=== PATIENT | male | born 1975 | race Caucasian/White ===

== ENCOUNTER 2018-03-06 09:15 | Observation (INO) ==
[2018-03-06] MEDS ORDERED: Tetanus/Diphtheria Toxoid Adult Vaccine Inj 0.5 ML Vial IM ONE (10:11)
[2018-03-06] MEDS ORDERED: Lidocaine PF 1% Inj 30 ML Vial INFILTRATN ONE (10:11)
--- NOTE | 2018-03-06 10:30 | ED ---
HPI General Chief complaint: Skin/Abscess/Foreign Body Stated complaint: Workers Comp Nail in Right Knee Time Seen by Provider: 03/06/18 10:05 Source: patient Mode of arrival: ambulatory Limitations: no limitations History of Present Illness HPI narrative: 42-year-old otherwise healthy male presents to the emergency room for evaluation of foreign body to his right knee that occurred at work just prior to arrival. Patient states he was holding a nail gun and walking with his finger on the sensitive trigger when he slipped and accidentally shot himself with a 2-3 inch nail into his right knee. He then had to climb down a ladder. He reports significant pain worsened with any movement of the knee. Patient came straight from work and has not taken anything for pain. Denies paresthesias. He denies any chronic medical conditions or daily medications. Unknown last tetanus. MD complaint: foreign body Onset (ago): minute(s) Tetanus Immunization: >5 Years Location: RLE Severity: severe Quality: aching and sharp Pain Consistency: constant Relieving factors: none Exacerbating factors: palpation and movement Context: none Associated symptoms: denies other symptoms Treatments prior to arrival: none Related Data Home Medications Medication Instructions Recorded Confirmed No Known Home Medications 03/06/18 03/06/18 Allergies Allergy/AdvReac Type Severity Reaction Status Date / Time No Known Allergies Allergy Verified 03/06/18 09:42 Review of Systems ROS Unobtainable All other systems reviewed negative except as stated in HPI PMFSH Medical History Medical History Patient denies medical problems (Acute) Surgical History Surgical History No history of previous surgery (Acute) Social History Social History Substance History: No History of Abuse Second Hand Smoke Exposure: Yes Smoking Status: Never smoker How Often Do You Have a Drink Containing Alcohol: Never Recent Travel in [facility] within the Last 8 Weeks: No Recent Out of Country Travel within the Last 8 Weeks: No Immunization History Tetanus Immunization: >5 Years Hx Influenza Vaccine This Season: No Exam Narrative Exam Narrative: GENERAL: Well-nourished, well-developed male in no acute distress. Afebrile. Ambulatory with a limp. SKIN: Focused skin assessment warm/dry. Small puncture wound to the right medial, proximal knee. There is a palpable 3 inch metallic nail just below the skin on the distal end. The proximal aspect is difficult to palpate due to depth and swelling. HEAD: Normocephalic. EYES: No scleral icterus. No injection or drainage. NECK: Supple, trachea midline. No JVD or lymphadenopathy. CARDIOVASCULAR: Regular rate and rhythm without murmurs, gallops, or rubs. RESPIRATORY: Breath sounds equal bilaterally. No accessory muscle use. MUSCULOSKELETAL: No cyanosis, or edema. 2+ dorsalis pedis pulse. Somewhat limited range of motion of the right knee because of pain. Extreme tenderness to palpation over the foreign body. Procedures Foreign Body Removal Time Out Performed: yes Foreign Body Removal Site: right and lower extremity Description of Foreign Body: other (nail) Sedation/Analgesia: other (1* idocaine) Technique: incision made to facilitate removal and bedside ultrasound guidance Complications: none, pain and bleeding Post procedure exam:: awake, alert, normal BP, normal HR and normal O2 sat Neurovascular: normal distal pulse, normal capillary fill, distal light touch sensation intact, distal motor function normal, no signs of compartment syndrome and no change from pre-procedure Course Initial Documented Vital Signs Temperature 99 F 03/06/18 09:20 Pulse Rate 72 03/06/18 09:20 Respiratory Rate 16 03/06/18 09:20 Blood Pressure 148/98 H 03/06/18 09:20 Pulse Oximetry 97 03/06/18 09:20 Last Documented Vital Signs Temperature 97.4 F L 03/07/18 03:58 Pulse Rate 52 L 03/07/18 03:58 Respiratory Rate 16 03/07/18 03:58 Blood Pressure 119/69 03/07/18 03:58 Pulse Oximetry 97 03/07/18 03:58 Medical Decision Making [facility] Narrative Medical decision making narrative: 42-year-old male presents to the emergency room for evaluation of foreign body to the right medial knee that occurred just prior to arrival. Patient accidentally shot himself with a high power nail gun. Patient has been ambulatory since the injury. He was able to climb down a ladder. He is well-appearing in the emergency room. Vital signs stable. There is a palpable 2 inch else in the anterior, medial knee. The puncture wound is about 2 cm superior to the nail. X-ray shows no bone or joint involvement. Under ultrasound guidance, an incision was made. The nail was palpated with the tip of the scalpel but it is too embedded and deep to remove in the ER. I spoke to Dr. Leung, orthopedic surgeon, who recommends CT. CT shows no joint involvement. Dr. Allison recommends transfer to [facility] for foreign body removal in the OR either tonight or tomorrow. Patient should remain nothing by mouth. IV access established basic labs obtained. CBC and BMP are unremarkable. Preop EKG obtained. Patient given Toradol, morphine, Ancef, and updated on tetanus in the emergency room. I spoke to Dr. Fontanez agrees to accept this patient to her service. He understands and agrees to plan. Differential Diagnosis Differential Diagnosis: Foreign body, joint effusion, bone injury, fracture Lab Data Result diagrams: 03/06/18 15:14 03/06/18 15:14 Lab Results 03/06/18 03/06/18 Range/Units 15:14 15:14 CBC w Diff Auto diff final WBC 5.5 (4.0-11.0) th/mm3 RBC 4.58 (4.50-5.90) mil/mm3 Hgb 14.1 (13.0-17.0) gm/dL Hct 40.9 (39.0-51.0) % MCV 89.3 (80.0-100.0) fL MCH 30.7 (27.0-34.0) pg MCHC 34.4 (32.0-36.0) % RDW 12.2 (11.6-17.2) % Plt Count 163 (150-450) th/mm3 MPV 8.7 (7.0-11.0) fL Neut % (Auto) 63.0 (16.0-70.0) % Lymph % (Auto) 25.9 (9.0-44.0) % [place] % (Auto) 6.5 (0.0-8.0) % Eos % (Auto) 3.9 (0.0-4.0) % Baso % (Auto) 0.7 (0.0-2.0) % Neut # (Auto) 3.5 (1.8-7.7) th/mm3 Lymph # (Auto) 1.4 (1.0-4.8) th/mm3 [place] # (Auto) 0.4 (0.0-0.9) th/mm3 Eos # (Auto) 0.2 (0.0-0.4) th/mm3 Baso # (Auto) 0.0 (0.0-0.2) th/mm3 WBC Differential . Sodium 142 (136-145) meq/L Potassium 4.5 (3.5-5.1) meq/L Chloride 111 H (98-107) meq/L Carbon Dioxide 25.9 (21.0-32.0) meq/L Anion Gap 5 (5-15) meq/L BUN 16 (7-18) mg/dL Creatinine 1.00 (0.60-1.30) mg/dL Estimated GFR 82 L (>89) mL/min Random Glucose 85 (74-106) mg/dL Calcium 8.3 L (8.5-10.1) mg/dL Imaging Data Radiologist's impression: ITS Impressions Knee X-Ray 03/06/18 10:11 CONCLUSION: 1. There is a nail in the soft tissues along the anteromedial aspect of the right knee area. 2. The bony structures are grossly intact. No joint dislocation. Knee CT 03/06/18 12:28 CONCLUSION: 1. There is a nail in the anterior medial soft tissues of the region of the knee. 2. The bony structures are grossly intact. Discharge Plan Discharge Disposition Patient Disposition: Transfer To [facility] [place] Discharge Details Anticipated Discharge Date: 03/07/18 Physicians Team ED Provider: Hugo Fuentes ED Midlevel Provider: Cierra Cuellar Primary Care Provider: Primary Care Marichuy Nielsen Attending Provider: Alejnadra Dean Status ED Status: Left Department Discharge Information Discharge Date/Time: 03/06/18 17:00
--- NOTE | 2018-03-06 10:32 | XR ---
EXAM DATE: 03/06/2018 10:29 AM EDT AGE/SEX: 42 years / Male INDICATIONS: Right knee foreign body; nail in knee from nail gun. CLINICAL DATA: This is the patient's initial encounter. Patient reports that signs and symptoms have been present for 1 day and indicates a pain score of 8/10. MEDICAL/SURGICAL HISTORY: None. None. COMPARISON: No prior exams available for comparison. FINDINGS: The bony structures are grossly intact. There is no joint dislocation. There is a nail in the soft ti ssues along the anteromedial aspect of the right knee area. The nail does not appear to be in a bony structure. There is no evidence of a joint effusion. CONCLUSION: 1. There is a nail in the soft tissues along the anteromedial aspect of the right knee area. 2. The bony structures are grossly intact. No joint dislocation. Electronically signed by: Marvin Ramirez MD 03/06/2018 10:31 AM EDT
[2018-03-06] MEDS ORDERED: Morphine Inj 4 MG/ML Vial IV.PUSH ONE (14:48)
[2018-03-06] MEDS ORDERED: ceFAZolin 2 GM Premix Inj 2 GM/50 ML PIGGYBACK IV.SIG ONE (14:48)
[2018-03-06 15:48] LABS: Potassium 4.5 meq/L (3.5-5.1)
[2018-03-06 15:50] LABS: Calcium 8.3 mg/dL (8.5-10.1)
[2018-03-06] MEDS ORDERED: Acetaminophen 325 MG Tablet PO PRN (15:50)
[2018-03-06] MEDS ORDERED: Bisacodyl 10 MG Supp RECTAL PRN (15:50)
[2018-03-06] MEDS ORDERED: Temazepam 15 MG Capsule PO PRN (15:50)
[2018-03-06 15:51] LABS: Carbon Dioxide 25.9 meq/L (21.0-32.0)
[2018-03-06 15:55] LABS: Baso % (Auto) 0.7 % (0.0-2.0); Eos # (Auto) 0.2 th/mm3 (0.0-0.4); Eos % (Auto) 3.9 % (0.0-4.0); Hematocrit 40.9 % (39.0-51.0); Hemoglobin 14.1 gm/dL (13.0-17.0); Lymph # (Auto) 1.4 th/mm3 (1.0-4.8); Lymph % (Auto) 25.9 % (9.0-44.0); Mean Corpuscular HGB Conc 34.4 % (32.0-36.0); Mean Corpuscular Hemoglobin 30.7 pg (27.0-34.0); Mean Corpuscular Volume 89.3 fL (80.0-100.0); Mean Platelet Volume 8.7 fL (7.0-11.0); Mono # (Auto) 0.4 th/mm3 (0.0-0.9); Mono % (Auto) 6.5 % (0.0-8.0); Neut # (Auto) 3.5 th/mm3 (1.8-7.7); Platelet Count 163 th/mm3 (150-450); Red Blood Count 4.58 mil/mm3 (4.50-5.90); Red Cell Distribution Width 12.2 % (11.6-17.2); White Blood Count 5.5 th/mm3 (4.0-11.0)
--- NOTE | 2018-03-06 16:37 | P.CONIM ---
History of Present Illness Primary Care Provider: No Primary Care Physician Chief Complaint: Right knee pain History of Present Illness: This patient is a 42-year-old gentleman with no past medical history who is come to the hospital complaining of right knee pain after an poly-himself with a nail gun while at work. Knee is quite painful and patient reports he has never done this before. Pain is severe and relieved with morphine. He came to the emergency room and the puncture was evaluated by the ER team and the nail was unable to be retrieved despite ER team measures. Patient's been recommended for orthopedic evaluation for surgical removal of foreign body. Patient does agree to this plan has been recommended for observation in the hospital. Review of Systems All other systems reviewed negative except as stated in HPI Constitutional: Reports fever(s) PMFSH - History History Provided By: Patient - Medical History Medical History: Medical History (Last Reviewed 03/06/18 @ 16:35 by Jodi Fontanez MD) Patient denies medical problems - Surgical History Surgical History: Surgical History (Last Reviewed 03/06/18 @ 16:35 by Jodi Fontanez MD) No history of previous surgery - Tobacco History Second Hand Smoke Exposure: No Smoking Status: Never smoker - Alcohol History How Often Do You Have a Drink Containing Alcohol: Never - Travel History Recent Travel in the [place] Within the Last 8 Weeks: No Recent Travel Out of the Country Within the Last 8 Weeks: No - Immunization History Tetanus Immunization: >5 Years Hx Influenza Vaccine This Season: No Medications and Allergies Active Medications: Active Medications Acetaminophen (Tylenol) 650 mg PO Q4H PRN PRN Reason: Temp > 100.4 Al Hydroxide/Mg Hydroxide (Milk Of Magnesia Liq) 30 ml PO Q12H PRN PRN Reason: Mild Constipation Bisacodyl (Dulcolax Supp) 10 mg RECTAL DAILY PRN PRN Reason: SEVERE CONSITIPATION Lactulose (Lactulose Liq) 30 ml PO DAILY PRN PRN Reason: SEVERE CONSITIPATION Metoclopramide HCl (Reglan Inj) 5 mg IV.PUSH Q6HR PRN; Protocol PRN Reason: NAUSEA OR VOMITING Senna/Docusate Sodium (Chica-Colace) 1 tab PO BID [place] Sennosides (Senokot) 17.2 mg PO Q12H PRN PRN Reason: Moderate Constipation Temazepam (Restoril) 15 mg PO HS PRN PRN Reason: INSOMNIA Allergies Allergy/AdvReac Type Severity Reaction Status Date / Time No Known Allergies Allergy Verified 03/06/18 09:42 Home Medications Medication Instructions Recorded Confirmed Type No Known Home Medications 03/06/18 03/06/18 History Exam Vital signs: Vital Signs 03/06/18 09:20 03/06/18 11:12 03/06/18 11:20 Temperature 99 F Pulse Rate 72 63 Respiratory Rate 16 16 16 Blood Pressure 148/98 H 155/100 H Pulse Oximetry 97 95 03/06/18 15:19 03/06/18 16:16 Temperature Pulse Rate 51 L 51 L Respiratory Rate 16 16 Blood Pressure 135/92 H 109/70 Pulse Oximetry 100 98 Intake & Output 03/05/18 03/06/18 03/06/18 18:59 06:59 18:59 Intake Total 50 / 50 Balance 50 / 50 Weight 116 kg Intake: IV 50 / 50 Ancef 2 GM Premix Inj 2 gm In 50 / 50 50 ml @ 100 mls/hr IV.SIG ONCE ONE Rx#:[id number] - Constitutional no acute distress, average body habitus - Routine HEENT Exam Head: Present: normocephalic, atraumatic Eye: Present: EOMI, PERRL ENT: Present: mucous membranes moist - Routine Neck Exam Present: supple, full ROM - Routine Respiratory Exam Present: CTA bilaterally - Routine Cardiovascular Exam Present: RRR - Routine Abdominal Exam Present: soft - Routine Extremities Exam Present: cyanosis, clubbing - Routine Skin Exam Comments: right knee dressing in tact - Routine Neurological Exam Present: alert, oriented X3 Results - Labs CBC & Chem 7: 03/06/18 15:14 03/06/18 15:14 Labs: Laboratory Results - last 24 hr 03/06/18 03/06/18 15:14 15:14 CBC w Diff Auto diff final WBC 5.5 RBC 4.58 Hgb 14.1 Hct 40.9 MCV 89.3 MCH 30.7 MCHC 34.4 RDW 12.2 Plt Count 163 MPV 8.7 Neut % (Auto) 63.0 Lymph % (Auto) 25.9 [place] % (Auto) 6.5 Eos % (Auto) 3.9 Baso % (Auto) 0.7 Neut # (Auto) 3.5 Lymph # (Auto) 1.4 [place] # (Auto) 0.4 Eos # (Auto) 0.2 Baso # (Auto) 0.0 WBC Differential . Sodium 142 Potassium 4.5 Chloride 111 H Carbon Dioxide 25.9 Anion Gap 5 BUN 16 Creatinine 1.00 Estimated GFR 82 L Random Glucose 85 Calcium 8.3 L - Imaging Impressions Knee X-Ray 03/06/18 10:11 CONCLUSION: 1. There is a nail in the soft tissues along the anteromedial aspect of the right knee area. 2. The bony structures are grossly intact. No joint dislocation. Knee CT 03/06/18 12:28 CONCLUSION: 1. There is a nail in the anterior medial soft tissues of the region of the knee. 2. The bony structures are grossly intact. Assessment and Plan - Assessment (1) Foreign body of knee Code(s): S80.259A - Superficial foreign body, unspecified knee, initial encounter Status: Acute
[2018-03-06] MEDS ORDERED: Morphine Sulfate Inj 2 MG/ML Vial IV.PUSH PRN ×2 (19:23→19:26)
[2018-03-06] MEDS ORDERED: Morphine Inj 4 MG/ML Vial IV.PUSH PRN (20:45)
[2018-03-06] MEDS: Morphine Inj 4 MG/ML Vial IV.PUSH PRN (21:13)
[2018-03-06] MEDS: Senna/Docusate Sodium 8.6/50 MG Tablet PO SCH (21:22)
[2018-03-07] MEDS: Morphine Inj 4 MG/ML Vial IV.PUSH PRN ×3 (00:48→09:55)
--- NOTE | 2018-03-07 07:16 | ED ---
HPI General Chief complaint: Skin/Abscess/Foreign Body Stated complaint: Workers Comp Nail in Right Knee Time Seen by Provider: 03/06/18 10:05 Source: patient Mode of arrival: ambulatory Limitations: no limitations History of Present Illness complaint: foreign body Location: RLE Severity: severe Relieving factors: none Exacerbating factors: palpation and movement Associated symptoms: denies other symptoms Related Data Home Medications Medication Instructions Recorded Confirmed No Known Home Medications 03/06/18 03/06/18 Allergies Allergy/AdvReac Type Severity Reaction Status Date / Time No Known Allergies Allergy Verified 03/06/18 09:42 [facility] Medical History Medical History Patient denies medical problems (Acute) Surgical History Surgical History No history of previous surgery (Acute) Social History Social History Substance History: No History of Abuse Second Hand Smoke Exposure: Yes Smoking Status: Never smoker How Often Do You Have a Drink Containing Alcohol: Never Recent Travel in [facility] within the Last 8 Weeks: No Recent Out of Country Travel within the Last 8 Weeks: No Immunization History Tetanus Immunization: >5 Years Hx Influenza Vaccine This Season: No Course Initial Documented Vital Signs Temperature 99 F 03/06/18 09:20 Pulse Rate 72 03/06/18 09:20 Respiratory Rate 16 03/06/18 09:20 Blood Pressure 148/98 H 03/06/18 09:20 Pulse Oximetry 97 03/06/18 09:20 Last Documented Vital Signs Temperature 97.4 F L 03/07/18 03:58 Pulse Rate 52 L 03/07/18 03:58 Respiratory Rate 16 03/07/18 03:58 Blood Pressure 119/69 03/07/18 03:58 Pulse Oximetry 97 03/07/18 03:58 Medical Decision Making BETY Attestation BETY supervised visit: Yes Attestation: I, Dr. Fuentes, have reviewed the advance practice practitioner's documentation and am in agreement, met with the patient face to face, made the diagnosis, and the medical decision making was done by me. *My assessment and Findings: This patient has a 3 inch nail stuck near the knee was a high pressure nail gun injury. JODEE Norton attempted removal but it is too deep for bedside ER removal, even using ultrasound guidance. Labs and imaging reviewed. She discussed the case with orthopedist who will admit for surgical removal Lab Data Result diagrams: 03/06/18 15:14 03/06/18 15:14 Lab Results 03/06/18 03/06/18 Range/Units 15:14 15:14 CBC w Diff Auto diff final WBC 5.5 (4.0-11.0) th/mm3 RBC 4.58 (4.50-5.90) mil/mm3 Hgb 14.1 (13.0-17.0) gm/dL Hct 40.9 (39.0-51.0) % MCV 89.3 (80.0-100.0) fL MCH 30.7 (27.0-34.0) pg MCHC 34.4 (32.0-36.0) % RDW 12.2 (11.6-17.2) % Plt Count 163 (150-450) th/mm3 MPV 8.7 (7.0-11.0) fL Neut % (Auto) 63.0 (16.0-70.0) % Lymph % (Auto) 25.9 (9.0-44.0) % [place] % (Auto) 6.5 (0.0-8.0) % Eos % (Auto) 3.9 (0.0-4.0) % Baso % (Auto) 0.7 (0.0-2.0) % Neut # (Auto) 3.5 (1.8-7.7) th/mm3 Lymph # (Auto) 1.4 (1.0-4.8) th/mm3 [place] # (Auto) 0.4 (0.0-0.9) th/mm3 Eos # (Auto) 0.2 (0.0-0.4) th/mm3 Baso # (Auto) 0.0 (0.0-0.2) th/mm3 WBC Differential . Sodium 142 (136-145) meq/L Potassium 4.5 (3.5-5.1) meq/L Chloride 111 H (98-107) meq/L Carbon Dioxide 25.9 (21.0-32.0) meq/L Anion Gap 5 (5-15) meq/L BUN 16 (7-18) mg/dL Creatinine 1.00 (0.60-1.30) mg/dL Estimated GFR 82 L (>89) mL/min Random Glucose 85 (74-106) mg/dL Calcium 8.3 L (8.5-10.1) mg/dL Imaging Data Radiologist's impression: ITS Impressions Knee X-Ray 03/06/18 10:11 CONCLUSION: 1. There is a nail in the soft tissues along the anteromedial aspect of the right knee area. 2. The bony structures are grossly intact. No joint dislocation. Knee CT 03/06/18 12:28 CONCLUSION: 1. There is a nail in the anterior medial soft tissues of the region of the knee. 2. The bony structures are grossly intact. Discharge Plan Discharge Disposition Patient Disposition: Transfer To [facility] [place] Discharge Details Anticipated Discharge Date: 03/07/18 Physicians Team ED Provider: Hugo Fuentes ED Midlevel Provider: Cierra Cuellar Primary Care Provider: Primary Care Marichuy Nielsen Attending Provider: Arthur Conner Status ED Status: Left Department Discharge Information Discharge Date/Time: 03/06/18 17:00
[2018-03-07] MEDS: Senna/Docusate Sodium 8.6/50 MG Tablet PO SCH (08:37)
--- NOTE | 2018-03-07 10:03 | P.PN ---
Subjective Interval history: Follow up foreign body in right knee. Patient seen and examined, lying in bed comfortably in nad. at bedside. Plan for OR today for removal. Keep NPO. VSS. Afebrile. No events overnight. Physical Exam Vital signs: Vital Signs 03/06/18 11:12 03/06/18 11:20 03/06/18 15:19 Temperature Pulse Rate 63 51 L Respiratory Rate 16 16 16 Blood Pressure 155/100 H 135/92 H Pulse Oximetry 95 100 03/06/18 16:16 03/06/18 20:00 03/06/18 22:47 Temperature Pulse Rate 51 L Respiratory Rate 16 16 Blood Pressure 109/70 155/98 H Pulse Oximetry 98 100 03/07/18 00:00 03/07/18 00:52 03/07/18 03:58 Temperature 97.4 F L 97.4 F L Pulse Rate 50 L 52 L Respiratory Rate 16 18 16 Blood Pressure 110/58 L 119/69 Pulse Oximetry 97 Intake & Output 03/06/18 03/07/18 03/07/18 18:59 06:59 18:59 Intake Total 50 / 50 0 / 0 Output Total 850 / 850 Balance 50 / 50 -850 / -850 Weight 116 kg 117.5 kg Intake: IV 50 / 50 Ancef 2 GM Premix Inj 2 gm In 50 / 50 50 ml @ 100 mls/hr IV.SIG ONCE ONE Rx#:[id number] Oral 0 / 0 Output: Urine 850 / 850 Other: Date of Last Bowel Movement 03/06/18 Weight On Admission 117.5 kg - Constitutional no acute distress - Routine HEENT Exam Head: Present: normocephalic Eye: Present: EOMI, PERRL ENT: Present: mucous membranes moist - Routine Neck Exam Present: supple Results - Labs CBC & Chem 7: 03/06/18 15:14 03/06/18 15:14 Laboratory Results - last 24 hr 03/06/18 03/06/18 15:14 15:14 CBC w Diff Auto diff final WBC 5.5 RBC 4.58 Hgb 14.1 Hct 40.9 MCV 89.3 MCH 30.7 MCHC 34.4 RDW 12.2 Plt Count 163 MPV 8.7 Neut % (Auto) 63.0 Lymph % (Auto) 25.9 [place] % (Auto) 6.5 Eos % (Auto) 3.9 Baso % (Auto) 0.7 Neut # (Auto) 3.5 Lymph # (Auto) 1.4 [place] # (Auto) 0.4 Eos # (Auto) 0.2 Baso # (Auto) 0.0 WBC Differential . Sodium 142 Potassium 4.5 Chloride 111 H Carbon Dioxide 25.9 Anion Gap 5 BUN 16 Creatinine 1.00 Estimated GFR 82 L Random Glucose 85 Calcium 8.3 L - Imaging Impressions Knee X-Ray 03/06/18 10:11 CONCLUSION: 1. There is a nail in the soft tissues along the anteromedial aspect of the right knee area. 2. The bony structures are grossly intact. No joint dislocation. Knee CT 03/06/18 12:28 CONCLUSION: 1. There is a nail in the anterior medial soft tissues of the region of the knee. 2. The bony structures are grossly intact. Assessment and Plan - Assessment (1) Foreign body of knee Code(s): S80.259A - Superficial foreign body, unspecified knee, initial encounter Status: Acute - Plan This patient is a 42-year-old gentleman with no past medical history who is come to the hospital complaining of right knee pain after a nail gun incident while at work. Right knee foreign body - Nail in right knee from nail gun incident,. - Consult placed to orthopedic sx. Plan for OR today. - Keep NPO. - Pain control, Morphine IV available per pain scale. - Further hospitalization and treatment plan will depend on further orthopedic recommendations. DVT prophylaxis: SCDs. Discharge Planning: DC home today after surgery and per their recs. Will have follow up with ortho upon dc.
[2018-03-07] MEDS ORDERED: Chlorhexidine Gluconate 2% 1 Pack (2 Cloths) TOPICAL SCH (10:45)
[2018-03-07] MEDS ORDERED: Metoprolol Tartrate 25 MG Tablet PO SCH (10:45)
--- NOTE | 2018-03-07 10:51 | ECG ---
Date Performed: 03/06/2018 Time Performed: 15:02:42 PTAGE: 42 years EKG: SINUS BRADYCARDIA BORDERLINE ECG NO PREVIOUS TRACING DOCTOR: Kingsley Jerome Interpretating Date/Time 03/07/2018 10:47:48
[2018-03-07] MEDS ORDERED: Sodium Chlor 0.9% Inj 500 ML IV.SIG SCH (11:00)
[2018-03-07] MEDS ORDERED: fentaNYL Citrate Inj 100 MCG/2 ML Ampul ONE ×2 (11:52→11:53)
[2018-03-07] MEDS ORDERED: Bupivacaine/Epinephrine Inj 0.25% 50 ML Vial ONE (12:02)
[2018-03-07] MEDS ORDERED: Bupivacaine/Dextrose 0.75% Inj 2 ML Ampul ONE (12:02)
[2018-03-07] MEDS ORDERED: ceFAZolin 2 GM Premix Inj 2 GM/50 ML PIGGYBACK IV.SIG ONE (12:25)
[2018-03-07] MEDS ORDERED: Naloxone Inj 0.4 MG/ML Vial ONE (13:30)
[2018-03-07] MEDS ORDERED: *morphine SULFATE 4 MG/ML PERIprocedure ONLY ONE (13:51)
--- NOTE | 2018-03-07 13:59 | MB ---
cc: Chaz Isbell MD DATE: 03/07/2018 REASON FOR CONSULTATION: Foreign body in right knee. HISTORY OF PRESENT ILLNESS: Abdi is a 42-year-old male who presented to the hospital. He was using a nail gun at work. He actually hit the trigger on the nail gun. The nail gun shot a nail into his knee. He had immediate right knee pain. He presented to the Emergency Room where x-rays revealed a large foreign body consistent with a nail in the right knee. He is currently awake and alert in the emergency room. His only complaint is his right knee. He denies any dizziness, syncope or loss of consciousness. His only complaint is his right knee. Pain is worse with movement. He has had difficulty ambulating. PAST MEDICAL HISTORY: Illnesses: None. SURGERIES: None. ALLERGIES: NONE. MEDICATIONS: None. SOCIAL HISTORY: The patient denies alcohol, tobacco or drug use. FAMILY HISTORY: Noncontributory. REVIEW OF SYSTEMS: The patient denies fevers, weight loss, headache, visual changes, hearing loss, chest pain, palpitations, shortness of breath, nausea or vomiting, urinary changes, bowel changes, neck or back pain, skin rashes, weakness or numbness of extremities or depression. He complains of right knee pain. The pain is worse with movement. LABORATORY DATA: White blood cell count is 5.5. Hematocrit is 40.9, platelet count is 163, potassium is 4.5, BUN 16. X-rays of right knee are reviewed. X-rays reveal a large metallic object in the soft tissue of the right knee. This appears to be consistent with a nail. PHYSICAL EXAMINATION: GENERAL: The patient is a well-developed, well-nourished, 42-year-old male. He is awake and alert. He is alert and oriented x3. He is in no acute distress. VITAL SIGNS: Temperature 97.6, pulse 52, respirations 16, blood pressure 113/64, O2 saturations 100% on room air. HEENT: Head: The patient is normocephalic. Eyes: Pupils are equal. NECK: Soft, nontender. The trachea is in the midline. ABDOMEN: Soft, nontender, nondistended. EXTREMITIES: Examination of bilateral upper extremities reveals no pain with shoulder, elbow and wrist motion. He has intact sensation in all fingers. He has good capillary refill in all fingers. Skin is intact. Radial pulses are palpable. Examination of left leg reveals no pain with hip, knee or ankle motion. Skin is intact. Dorsalis pedis pulses palpable. Sensation is intact. Examination of right leg reveals no pain around his hip or ankle. He has intact sensation right foot. Dorsalis pedis pulses palpable. Examination of his right knee reveals pain with any motion. He has 2 lacerations over the anterior knee. There is a palpable foreign body underneath the skin. The foreign body is not visible. The calf, thigh compartments are soft. IMPRESSION: 1. Nail gun injury to right knee. 2. Foreign body, right knee. PLAN: Treatment options were discussed with the patient. At this point, would recommend surgery for irrigation and debridement of right knee with removal of foreign body. Risks of surgery include bleeding, infection, injury to arteries, nerves or blood vessels, nonunion, malunion, painful hardware, wound infection, as well as medical complications including blood clot, stroke, heart attack and . All questions were answered. I will plan on surgery today. A mid-level provider in my office, nurse practitioner or PA, may see this patient on a follow-up basis and continue to implement the objective of this plan including: Starting or adjusting medications, injections of muscle, tendon, bursa or joints, cast application, orthotic or brace application, physical therapy, further radiographic studies including x-ray, MRI, CT, ultrasounds or bone scan, vascular studies, neurologic studies, or other specialist consultations, and proceeding with surgical management as appropriate. Postoperatively, the patient will be prescribed a narcotic pain medication. The [employer] prescription drug monitoring database has been queried. The patient has acute pain exacerbation. He has an expected physiologic response secondary to traumatic injury and surgery. There is lack of other alternative treatment options except for narcotic pain medication. MD NED Moise/KARMA , 01:33 PM , 01:57 PM JACE
--- NOTE | 2018-03-07 14:02 | XR ---
EXAM DATE: 03/07/2018 1:59 PM EDT AGE/SEX: 42 years / Male INDICATIONS: Post removal of foreign body. CLINICAL DATA: This is the patient's subsequent encounter. Patient reports that signs and symptoms h ave been present for 1 day and indicates a pain score of Nonresponsive. MEDICAL/SURGICAL HISTORY: None. None. COMPARISON: [facility], KNEE LIMITED RIGHT 09/06V, 03/07/2018. . CONCLUSION: Fluoroscopic images obtained of the right knee after removal of foreign body. Electronically signed by: Han Casper MD 03/07/2018 2:00 PM EDT
--- NOTE | 2018-03-07 14:02 | XR ---
EXAM DATE: 03/07/2018 1:58 PM EDT AGE/SEX: 42 years / Male INDICATIONS: Right knee foreign body. CLINICAL DATA: This is the patient's initial encounter. Patient reports that signs and symptoms have been present for 1 day and indicates a pain score of Nonresponsive. MEDICAL/SURGICAL HISTORY: None. None. COMPARISON: [facility] [place], KNEE LIMITED RIGHT 2V, 03/07/2018. . CONCLUSION: Fluoroscopic images right knee demonstrates temporary probe just superior to a nail/foreign body/ Electronically signed by: Han Casper MD 03/07/2018 2:01 PM EDT
[2018-03-07] MEDS ORDERED: Gentamicin/NS 80 mg Premix 100 ML IV.SIG SCH (15:00)
[2018-03-07] MEDS ORDERED: Gentamicin Inj 80 MG in Sodium Chlor 0.9% Inj 100 ML IV.SIG SCH ×2 (15:30→16:00)
--- NOTE | 2018-03-07 16:15 | P.PNOP ---
Subjective Interval history: Doing well after surgery. Transferred to PACU in stable condition Physical Exam Vital signs: Vital Signs 03/06/18 16:16 03/06/18 20:00 03/06/18 22:47 Temperature Pulse Rate 51 L Respiratory Rate 16 16 Blood Pressure 109/70 155/98 H Pulse Oximetry 98 100 03/07/18 00:00 03/07/18 00:52 03/07/18 03:58 Temperature 97.4 F L 97.4 F L Pulse Rate 50 L 52 L Respiratory Rate 16 18 16 Blood Pressure 110/58 L 119/69 Pulse Oximetry 97 03/07/18 08:00 03/07/18 13:24 03/07/18 13:30 Temperature 97.6 F 97.8 F Pulse Rate 68 56 L Respiratory Rate 54 H 17 17 Blood Pressure 113/66 137/88 133/77 Pulse Oximetry 100 100 100 03/07/18 13:50 03/07/18 14:04 Temperature 97.8 F Pulse Rate 55 L 56 L Respiratory Rate 18 17 Blood Pressure 127/82 143/95 H Pulse Oximetry 100 100 Intake & Output 03/06/18 03/07/18 03/07/18 18:59 06:59 18:59 Intake Total 50 / 50 0 / 0 750 / 750 Output Total 850 / 850 25 / 25 Balance 50 / 50 -850 / -850 725 / 725 Weight 116 kg 117.5 kg Intake: IV 50 / 50 50 / 50 Ancef 2 GM Premix Inj 2 gm In 50 / 50 50 / 50 50 ml @ 0 mls/hr IV.SIG .STK- MED ONE Rx#:[id number] Oral 0 / 0 Anesthesia Amount 700 / 700 Output: Urine 850 / 850 Estimated Blood Loss 25 / 25 Other: Date of Last Bowel Movement 03/06/18 Weight On Admission 117.5 kg - Routine Extremities Exam Comments: Right lower extremity: Clean dry dressings intact. Moderate swelling. Knee is stable to exam. Distally intact sensation with good capillary refills. Results - Labs CBC & Chem 7: 03/06/18 15:14 03/06/18 15:14 - Imaging Impressions Knee X-Ray 03/07/18 00:00 CONCLUSION: Fluoroscopic images obtained of the right knee after removal of foreign body. Knee X-Ray 03/07/18 00:00 CONCLUSION: Fluoroscopic images right knee demonstrates temporary probe just superior to a nail/foreign body/ Assessment and Plan - Ortho Post Op Day # 0 - Assessment and Plan Irrigation debridement of right knee with removal of nail. Nail does not appear to have pierced bone or knee joint. Weightbearing as tolerated and may be discharged home when able. Follow up with Dr. Isbell or JODEE in 2 weeks for planned suture removal
[2018-03-07] MEDS ORDERED: Lidocaine PF 1% Inj 5 ML Syringe INFILTRATN ONE (16:59)
[2018-03-07] MEDS ORDERED: Esmolol Bolus Inj 100 MG/10 ML Vial IV.PUSH ONE (16:59)
[2018-03-07] MEDS ORDERED: ceFAZolin 2 GM Premix Inj 2 GM/50 ML PIGGYBACK IV.SIG SCH (20:00)
--- NOTE | 2018-03-17 10:35 | P.OP ---
Date of procedure: 03/17/18 Procedure: removal of deep foreign body right knee Anesthesia: GETA Surgeon: Chaz Wilks MD Cable Hooker: CHECO Oh PA-C The surgical procedure was assisted by my physician cable splicer assistant. My P.A. presence was necessary throughout this case for the manipulation and positioning of the surgical extremity. My P.A. was assisting me throughout the duration of this procedure. The skill set of a physician cable splicer assistant was medically necessary to complete this procedure. During the surgical case the certified surgical technologist was working at the back table and the physician cable splicer assistant was directly assisting me. Operation and Findings: Abdi sustained an injury at work resulting in a nail from a nail then going into his right knee. Informed consent was obtained preoperatively and operative site was marked. His back operating room. He was given IV sedation and general anesthesia. Timeout procedure was performed. Right leg was prepped with alcohol follow-up Hibiclens and draped in usual sterile fashion. Procedure began with localization of the nail. Fluoroscopy was used to help visualize the nail. The nail was in soft tissue and was not in bone. The nail was removed. The traumatic laceration was opened. The soft tissue was thoroughly irrigated. An excisional debridement was performed of this local soft tissue. The joint capsule itself was palpated and visualized and appeared to be intact. After thorough debridement the wound was thoroughly irrigated with sterile saline. Next the wound was closed with 3-0 PDS and 3-0 nylon. Sterile dressings were applied. Patient was awakened and transferred to recovery Room in stable condition.
== END 2018-03-07 17:00 | disposition home or self-care (01) ==
LOC: PHEDA 09:15 → N04 09:15 → PHED 09:15 → N04 17:00
PROVIDERS: ADMIT Family Medicine; ATTEND Family Medicine

== ENCOUNTER 2018-04-25 16:51 | Observation (INO) ==
[2018-04-25] MEDS ORDERED: Sod Chloride 0.9% Inj 1,000 ML IV.SIG ONE ×3 (16:55→17:47)
--- NOTE | 2018-04-25 17:15 | ED ---
HPI General Chief complaint: Weakness Stated complaint: Cramping Time Seen by Provider: 04/25/18 16:55 Source: patient and EMS Mode of arrival: EMS Limitations: no limitations History of Present Illness HPI narrative: 42-year-old male arrives by EMS. He was roz today. He had to go home early due to muscle cramping. It was constant at that point. Upon return home slept for about an hour and a half and then woke up with shortness of breath and chest tightness. He called EMS to to the current pulmonary symptoms. In route to the ED they resolved and he has none at the time of ED evaluation upon his arrival. He reports an episode of acute heat illness twice previously which she states feels the same as today. No headache. No weakness. He does report persistent mild cramping about the extremities. He reports some difficulty tolerating adequate hydration at work. complaint: Cramps Onset (ago): hour(s) Severity: mild, moderate and severe Relieving factors: other (IV fluids by EMS) Related Data Home Medications Medication Instructions Recorded Confirmed No Known Home Medications 03/06/18 04/25/18 Allergies Allergy/AdvReac Type Severity Reaction Status Date / Time No Known Allergies Allergy Verified 04/25/18 16:52 Review of Systems ROS: all other systems reviewed are negative Cardiovascular Denies syncope, Denies pedal edema and Denies lightheadedness PMFSH Medical History Medical History Patient denies medical problems (Acute) Surgical History Surgical History No history of previous surgery (Acute) Social History Social History Substance History: No History of Abuse Second Hand Smoke Exposure: No Smoking Status: Never smoker How Often Do You Have a Drink Containing Alcohol: Never Recent Travel in [facility] within the Last 8 Weeks: No Recent Out of Country Travel within the Last 8 Weeks: No Exam Narrative Exam Narrative: GENERAL: 42-year-old male well-nourished well-developed no acute distress arrives by EMS. SKIN: Focused skin assessment warm/dry. HEAD: Atraumatic. Normocephalic. EYES: Pupils equal and round. No scleral icterus. No injection or drainage. ENT: No nasal bleeding or discharge. Mucous membranes pink and moist. NECK: Trachea midline. No JVD. CARDIOVASCULAR: Heart rate is about 80. The rhythm is regular. RESPIRATORY: No accessory muscle use. Clear to auscultation. Breath sounds equal bilaterally. GASTROINTESTINAL: Abdomen soft, non-tender, nondistended. Hepatic and splenic margins not palpable. MUSCULOSKELETAL: No obvious deformities. No clubbing. No cyanosis. No edema. NEUROLOGICAL: Awake and alert. No obvious cranial nerve deficits. Motor grossly within normal limits. Normal speech. No sign fasciculations. PSYCHIATRIC: Appropriate mood and affect; insight and judgment normal. Course Initial Documented Vital Signs Temperature 98 F 04/25/18 17:12 Pulse Rate 82 04/25/18 17:12 Respiratory Rate 18 04/25/18 17:12 Blood Pressure 133/75 04/25/18 17:12 Pulse Oximetry 97 04/25/18 17:12 Last Documented Vital Signs Temperature 98 F 04/25/18 17:12 Pulse Rate 82 04/25/18 17:12 Respiratory Rate 18 04/25/18 17:12 Blood Pressure 133/75 04/25/18 17:12 Pulse Oximetry 97 04/25/18 17:12 Medical Decision Making MDM Narrative Medical decision making narrative: Patient arrives with acute kidney injury. 3 L IV fluids given here. Creatinine kinase is about 270. Admission for IV hydration and electrolyte monitoring and cardiac telemetry. Medical Screen Exam Complete: Yes Emergency Medical Condition: Yes Lab Data Lab results reviewed: Yes I reviewed the patient's lab results. Lab results narrative: LFTs are normal Creatinine kinase 219 Urine drug screen is negative Result diagrams: 04/25/18 17:15 04/25/18 17:15 Lab Results 04/25/18 04/25/18 04/25/18 Range/Units 17:15 17:15 18:45 CBC w Diff Auto diff final WBC 8.6 (4.0-11.0) th/mm3 RBC 4.73 (4.50-5.90) mil/mm3 Hgb 14.2 (13.0-17.0) gm/dL Hct 41.7 (39.0-51.0) % MCV 88.1 (80.0-100.0) fL MCH 30.1 (27.0-34.0) pg MCHC 34.1 (32.0-36.0) % RDW 12.0 (11.6-17.2) % Plt Count 177 (150-450) th/mm3 MPV 8.7 (7.0-11.0) fL Neut % (Auto) 80.1 H (16.0-70.0) % Lymph % (Auto) 11.5 (9.0-44.0) % [place] % (Auto) 7.5 (0.0-8.0) % Eos % (Auto) 0.6 (0.0-4.0) % Baso % (Auto) 0.3 (0.0-2.0) % Neut # (Auto) 6.9 (1.8-7.7) th/mm3 Lymph # (Auto) 1.0 (1.0-4.8) th/mm3 [place] # (Auto) 0.6 (0.0-0.9) th/mm3 Eos # (Auto) 0.1 (0.0-0.4) th/mm3 Baso # (Auto) 0.0 (0.0-0.2) th/mm3 WBC Differential . Differential Comment . Sodium 136 (136-145) meq/L Potassium 4.8 (3.5-5.1) meq/L Chloride 103 (98-107) meq/L Carbon Dioxide 25.7 (21.0-32.0) meq/L Anion Gap 7 (5-15) meq/L BUN 28 H (7-18) mg/dL Creatinine 2.10 H (0.60-1.30) mg/dL Estimated GFR 35 L (>89) mL/min Random Glucose 119 H (74-106) mg/dL Calcium 8.3 L (8.5-10.1) mg/dL Total Bilirubin 0.5 (0.2-1.0) mg/dL AST 24 (15-37) U/L ALT 41 (12-78) U/L Alkaline Phosphatase 71 (45-117) U/L Total Creatine Kinase 219 (39-308) U/L CK-MB (CK-2) 3.2 (0.5-3.6) ng/mL Total Protein 7.1 (6.4-8.2) g/dL Albumin 4.0 (3.4-5.0) g/dL Urine Myoglobin Cancelled Urine Opiates Screen (Neg) Ur Barbiturates Screen (Neg) Ur Amphetamines Screen (Neg) U Benzodiazepines Scrn (Neg) Urine Cocaine Screen (Neg) U Cannabinoids Screen (Neg) 08/21/18 Range/Units 18:45 CBC w Diff WBC (4.0-11.0) th/mm3 RBC (4.50-5.90) mil/mm3 Hgb (13.0-17.0) gm/dL Hct (39.0-51.0) % MCV (80.0-100.0) fL MCH (27.0-34.0) pg MCHC (32.0-36.0) % RDW (11.6-17.2) % Plt Count (150-450) th/mm3 MPV (7.0-11.0) fL Neut % (Auto) (16.0-70.0) % Lymph % (Auto) (9.0-44.0) % [place] % (Auto) (0.0-8.0) % Eos % (Auto) (0.0-4.0) % Baso % (Auto) (0.0-2.0) % Neut # (Auto) (1.8-7.7) th/mm3 Lymph # (Auto) (1.0-4.8) th/mm3 [place] # (Auto) (0.0-0.9) th/mm3 Eos # (Auto) (0.0-0.4) th/mm3 Baso # (Auto) (0.0-0.2) th/mm3 WBC Differential Differential Comment Sodium (136-145) meq/L Potassium (3.5-5.1) meq/L Chloride (98-107) meq/L Carbon Dioxide (21.0-32.0) meq/L Anion Gap (5-15) meq/L BUN (7-18) mg/dL Creatinine (0.60-1.30) mg/dL Estimated GFR (>89) mL/min Random Glucose (74-106) mg/dL Calcium (8.5-10.1) mg/dL Total Bilirubin (0.2-1.0) mg/dL AST (15-37) U/L ALT (12-78) U/L Alkaline Phosphatase (45-117) U/L Total Creatine Kinase (39-308) U/L CK-MB (CK-2) (0.5-3.6) ng/mL Total Protein (6.4-8.2) g/dL Albumin (3.4-5.0) g/dL Urine Myoglobin Urine Opiates Screen Neg (Neg) Ur Barbiturates Screen Neg (Neg) Ur Amphetamines Screen Neg (Neg) U Benzodiazepines Scrn Neg (Neg) Urine Cocaine Screen Neg (Neg) U Cannabinoids Screen Neg (Neg) ECG Data Attestation: I personally reviewed and interpreted this ECG as follows: Interpretation: Sinus, rate 81 normal axis intervals no ischemic injury pattern or preexcitation morphology Discharge Plan Discharge Disposition Patient Disposition: 30 Still Patient Discharge Condition Condition: Stable Discharge Details Diagnosis: Heat exhaustion Physicians Team ED Provider: Cecilio Arciniega Primary Care Provider: Primary Care Marichuy Nielsen Attending Provider: Yara Polanco Discharge Interventions Interventions: Vital Signs Last Done: 04/25/18 17:12 Status ED Status: Admitted Observation Patient
[2018-04-25 17:33] LABS: Baso % (Auto) 0.3 % (0.0-2.0); Eos # (Auto) 0.1 th/mm3 (0.0-0.4); Eos % (Auto) 0.6 % (0.0-4.0); Hematocrit 41.7 % (39.0-51.0); Hemoglobin 14.2 gm/dL (13.0-17.0); Lymph % (Auto) 11.5 % (9.0-44.0); Mean Corpuscular HGB Conc 34.1 % (32.0-36.0); Mean Corpuscular Hemoglobin 30.1 pg (27.0-34.0); Mean Corpuscular Volume 88.1 fL (80.0-100.0); Mean Platelet Volume 8.7 fL (7.0-11.0); Mono # (Auto) 0.6 th/mm3 (0.0-0.9); Mono % (Auto) 7.5 % (0.0-8.0); Neut # (Auto) 6.9 th/mm3 (1.8-7.7); Neut % (Auto) 80.1 % (16.0-70.0); Platelet Count 177 th/mm3 (150-450); Red Blood Count 4.73 mil/mm3 (4.50-5.90); White Blood Count 8.6 th/mm3 (4.0-11.0)
[2018-04-25 17:41] LABS: Chloride 103 meq/L (98-107); Potassium 4.8 meq/L (3.5-5.1); Sodium 136 meq/L (136-145)
[2018-04-25 17:44] LABS: Anion Gap 7 meq/L (5-15); Calcium 8.3 mg/dL (8.5-10.1); Carbon Dioxide 25.7 meq/L (21.0-32.0); Glucose,Random 119 mg/dL (74-106)
[2018-04-25 17:45] LABS: Blood Urea Nitrogen 28 mg/dL (7-18)
[2018-04-25 17:47] LABS: Alanine Aminotransferase 41 U/L (12-78)
[2018-04-25 17:48] LABS: Aspartate Aminotransferase 24 U/L (15-37); Glomerular Filtration Rate 35 mL/min (>89)
[2018-04-25 17:49] LABS: Total Protein 7.1 g/dL (6.4-8.2)
[2018-04-25 17:50] LABS: Alkaline Phosphatase 71 U/L (45-117); Creatine Kinase 219 U/L (39-308)
[2018-04-25 18:10] LABS: Creatine Kinase MB 3.2 ng/mL (0.5-3.6)
[2018-04-25 19:02] LABS: Amphetamine Screen,Urine Neg (Neg); Barbiturate Screen,Urine Neg (Neg); Cannabinoid Screen,Urine Neg (Neg); Cocaine Screen,Urine Neg (Neg)
[2018-04-25 19:09] LABS: Opiate Screen,Urine Neg (Neg)
[2018-04-25] MEDS ORDERED: Bisacodyl 10 MG Supp RECTAL PRN (19:19)
[2018-04-25] MEDS ORDERED: Acetaminophen 325 MG Tablet PO PRN (19:19)
[2018-04-25 20:27] VITALS: O2SAT 96
[2018-04-25] MEDS: Sod Chloride 0.9% Inj 1,000 ML IV.CONT SCH (20:46)
[2018-04-25] MEDS: Senna/Docusate Sodium 8.6/50 MG Tablet PO SCH (22:47)
--- NOTE | 2018-04-25 23:36 | ECG ---
Date Performed: 04/25/2018 Time Performed: 17:11:37 PTAGE: 42 years EKG: Sinus rhythm NONSPECIFIC T-WAVE ABNORMALITY BORDERLINE ECG PREVIOUS TRACING : 03/06/2018 15.02 Compared to previous tracing, rate has increased DOCTOR: Olvin Arciniega Interpretating Date/Time 04/25/2018 23:35:55
[2018-04-26] MEDS: Sod Chloride 0.9% Inj 1,000 ML IV.CONT SCH (05:30)
[2018-04-26 06:55] LABS: Baso # (Auto) 0.1 th/mm3 (0.0-0.2); Baso % (Auto) 1.3 % (0.0-2.0); Eos # (Auto) 0.2 th/mm3 (0.0-0.4); Hematocrit 40.4 % (39.0-51.0); Hemoglobin 13.4 gm/dL (13.0-17.0); Lymph # (Auto) 1.7 th/mm3 (1.0-4.8); Lymph % (Auto) 27.4 % (9.0-44.0); Mean Corpuscular HGB Conc 33.3 % (32.0-36.0); Mean Corpuscular Hemoglobin 29.7 pg (27.0-34.0); Mean Corpuscular Volume 89.3 fL (80.0-100.0); Mean Platelet Volume 9.1 fL (7.0-11.0); Mono # (Auto) 0.6 th/mm3 (0.0-0.9); Mono % (Auto) 9.7 % (0.0-8.0); Neut # (Auto) 3.6 th/mm3 (1.8-7.7); Neut % (Auto) 57.6 % (16.0-70.0); Platelet Count 178 th/mm3 (150-450); Red Blood Count 4.52 mil/mm3 (4.50-5.90); Red Cell Distribution Width 12.4 % (11.6-17.2); White Blood Count 6.2 th/mm3 (4.0-11.0)
[2018-04-26 07:24] LABS: Potassium 4.3 meq/L (3.5-5.1)
[2018-04-26 07:29] LABS: Carbon Dioxide 26.4 meq/L (21.0-32.0)
[2018-04-26] MEDS: Senna/Docusate Sodium 8.6/50 MG Tablet PO SCH (08:51)
[2018-04-26 08:59] VITALS: RESP 17
--- NOTE | 2018-04-26 10:06 | P.HP ---
History of Present Illness Primary Care Physician: No Primary Care Physician Chief Complaint: Muscle cramping History of Present Illness: This is a 42-year-old male with no significant past medical history. Family history no kidney disease. He presented to the emergency department yesterday because of generalized muscle cramping. He just came back from vacation and was eager to report to work yesterday. 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 He slept for 1 hour and when he woke up complaining of shortness of breath and chest tightness prompted to call EMS. En route to the hospital his symptoms resolved. He has history of heat related illness twice in the past. States he was wearing a cap and was hydrating. At this time, he feels much better and wants to go home. Denies urinary complaints. All other systems reviewed negative Review of Systems All other systems reviewed negative except as stated in HPI PMFSH - History History Provided By: Patient - Medical History Medical History: Medical History (Last Updated 04/25/18 @ 17:11 by Corina Delaney RN) Patient denies medical problems (Acute) - Surgical History Surgical History: Surgical History (Last Reviewed 04/25/18 @ 17:11 by Corina Delaney RN) No history of previous surgery (Acute) - Tobacco History Second Hand Smoke Exposure: No Tobacco Use In Past 30 Days: No Smoking Status: Never smoker - Alcohol History How Often Do You Have a Drink Containing Alcohol: Never - Substance Use History Substance History: No History of Abuse - Travel History Recent Travel in the [place] Within the Last 8 Weeks: No Recent Travel Out of the Country Within the Last 8 Weeks: No - Immunization History Tetanus Immunization: Unable to Assess Hx Influenza Vaccine This Season: Yes Medications and Allergies Active Medications: Active Medications Acetaminophen (Tylenol) 650 mg PO Q4H PRN PRN Reason: Temp > 100.4 Bisacodyl (Dulcolax Supp) 10 mg RECTAL DAILY PRN PRN Reason: SEVERE CONSITIPATION Sodium Chloride (Ns Inj) 1,000 mls @ 125 mls/hr IV.CONT .Q8H [place] Last Admin: 04/26/18 05:30 Dose: 125 mls/hr Lactulose (Lactulose Liq) 30 ml PO DAILY PRN PRN Reason: SEVERE CONSITIPATION Ondansetron HCl (Zofran Inj) 4 mg IV.PUSH Q6H PRN PRN Reason: NAUSEA OR VOMITING Senna/Docusate Sodium (Chica-Colace) 1 tab PO BID [facility] Last Admin: 04/26/18 08:51 Dose: Not Given Sennosides (Senokot) 17.2 mg PO Q12H PRN PRN Reason: Moderate Constipation Sodium Chloride (Ns Flush) 2 ml IV.FLUSH PRN PRN PRN Reason: FLUSH AFTER USING IV ACCESS Allergies Allergy/AdvReac Type Severity Reaction Status Date / Time No Known Allergies Allergy Verified 04/25/18 16:52 Home Medications Medication Instructions Recorded Confirmed Type No Known Home Medications 03/06/18 04/25/18 History Exam Vital signs: Vital Signs 04/25/18 17:12 04/25/18 20:25 04/25/18 21:00 Temperature 98 F 96.4 F L Pulse Rate 82 77 66 Respiratory Rate 18 18 18 Blood Pressure 133/75 108/56 L 120/70 Pulse Oximetry 97 96 96 04/26/18 00:00 04/26/18 08:00 Temperature 97.4 F L 97.0 F L Pulse Rate 68 70 Respiratory Rate 18 17 Blood Pressure 122/59 L 122/73 Pulse Oximetry 96 96 Intake & Output 04/25/18 04/26/18 04/26/18 18:59 06:59 18:59 Intake Total 4600 / 4600 Output Total 1300 / 1300 Balance 3300 / 3300 Weight 117.027 kg 117 kg Intake: IV 4000 / 4000 NS Inj 1,000 ML @ 125 mls/hr IV 1000 / 1000 .CONT .Q8H [facility] Rx#:[id number] NS Inj 1,000 ML @ Wide Open IV. 3000 / 3000 SIG BOLUS ONE Rx#:[id number] Oral 600 / 600 Output: Urine 1300 / 1300 Other: # Voids 1 Weight On Admission 117 kg Narrative: GENERAL: Well-developed and well-nourished in no distress SKIN: Warm and dry. HEAD: Atraumatic. Normocephalic. EYES: Pupils equal and round. No scleral icterus. No injection or drainage. ENT: No nasal bleeding or discharge. Mucous membranes pink and moist. NECK: Trachea midline. No JVD. CARDIOVASCULAR: Regular rate and rhythm. RESPIRATORY: No accessory muscle use. Clear to auscultation. Breath sounds equal bilaterally. GASTROINTESTINAL: Abdomen soft, non-tender, nondistended. MUSCULOSKELETAL: Extremities without clubbing, cyanosis, or edema. No obvious deformities. NEUROLOGICAL: Awake and alert. No obvious cranial nerve deficits. Motor grossly within normal limits. Five out of 5 muscle strength in the arms and legs. Normal speech. PSYCHIATRIC: Appropriate mood and affect; insight and judgment normal. Results - Labs CBC & Chem 7: 04/26/18 05:45 04/26/18 05:45 Labs: Laboratory Results - last 24 hr 04/25/18 04/25/18 04/25/18 17:15 17:15 18:45 CBC w Diff Auto diff final WBC 8.6 RBC 4.73 Hgb 14.2 Hct 41.7 MCV 88.1 MCH 30.1 MCHC 34.1 RDW 12.0 Plt Count 177 MPV 8.7 Neut % (Auto) 80.1 H Lymph % (Auto) 11.5 Walsh % (Auto) 7.5 Eos % (Auto) 0.6 Baso % (Auto) 0.3 Neut # (Auto) 6.9 Lymph # (Auto) 1.0 Walsh # (Auto) 0.6 Eos # (Auto) 0.1 Baso # (Auto) 0.0 WBC Differential . Differential Comment . Sodium 136 Potassium 4.8 Chloride 103 Carbon Dioxide 25.7 Anion Gap 7 BUN 28 H Creatinine 2.10 H Estimated GFR 35 L Random Glucose 119 H Calcium 8.3 L Total Bilirubin 0.5 AST 24 ALT 41 Alkaline Phosphatase 71 Total Creatine Kinase 219 CK-MB (CK-2) 3.2 Total Protein 7.1 Albumin 4.0 Urine Myoglobin Cancelled Urine Opiates Screen Ur Barbiturates Screen Ur Amphetamines Screen U Benzodiazepines Scrn Urine Cocaine Screen U Cannabinoids Screen 04/25/18 04/26/18 04/26/18 18:45 05:45 05:45 CBC w Diff Auto diff final WBC 6.2 RBC 4.52 Hgb 13.4 Hct 40.4 MCV 89.3 MCH 29.7 MCHC 33.3 RDW 12.4 Plt Count 178 MPV 9.1 Neut % (Auto) 57.6 Lymph % (Auto) 27.4 Walsh % (Auto) 9.7 H Eos % (Auto) 4.0 Baso % (Auto) 1.3 Neut # (Auto) 3.6 Lymph # (Auto) 1.7 Walsh # (Auto) 0.6 Eos # (Auto) 0.2 Baso # (Auto) 0.1 WBC Differential . Differential Comment . Sodium 143 Potassium 4.3 Chloride 110 H Carbon Dioxide 26.4 Anion Gap 7 BUN 23 H Creatinine 1.40 H Estimated GFR 56 L Random Glucose 107 H Calcium 8.0 L Total Bilirubin AST ALT Alkaline Phosphatase Total Creatine Kinase CK-MB (CK-2) Total Protein Albumin Urine Myoglobin Urine Opiates Screen Neg Ur Barbiturates Screen Neg Ur Amphetamines Screen Neg U Benzodiazepines Scrn Neg Urine Cocaine Screen Neg U Cannabinoids Screen Neg Caprini VTE Risk Assessment Caprini VTE Risk Assessment: No/Low Risk (score <= 1) Caprini Risk Assessment Model: Point Value = 1 Point Value = 2 Point Value = 3 Point Value = 5 Age 41-60 Minor surgery BMI > 25 kg/m2 Swollen legs Varicose veins or History of unexplained or recurrent spontaneous Oral contraceptives or hormone replacement Sepsis (< 1 month) Serious lung disease, including pneumonia (< 1 month) Abnormal pulmonary function Acute myocardial infarction Congestive heart failure (< 1 month) History of inflammatory bowel disease Medical patient at bed rest Age 61-74 Arthroscopic surgery Major open surgery (> 45 min) Laparoscopic surgery (> 45 min) Malignancy Confined to bed (> 72 hours) Immobilizing plaster cast Central venous access Age >= 75 History of VTE Family history of VTE Factor V Leiden Prothrombin [id number] Lupus anticoagulant Anticardiolipin antibodies Elevated serum homocysteine Heparin-induced thrombocytopenia Other congenital or acquired thrombophilia Stroke (< 1 month) Elective arthroplasty Hip, pelvis, or leg fracture Acute spinal cord injury (< 1 month) Prophylaxis Regimen: Total Risk Factor Score Risk Level Prophylaxis Regimen 0-1 Low Early ambulation 2 Moderate Order ONE of the following: *Sequential Compression Device (SCD) *Heparin 5000 units SQ BID 3-4 Higher Order ONE of the following medications: *Heparin 5000 units SQ TID *Enoxaparin/Lovenox 40 mg SQ daily (WT < 150 kg, CrCl > 30 mL/min) *Enoxaparin/Lovenox 30 mg SQ daily (WT < 150 kg, CrCl > 10-29 mL/min) *Enoxaparin/Lovenox 30 mg SQ BID (WT < 150 kg, CrCl > 30 mL/min) AND/OR *Sequential Compression Device (SCD) 5 or more Highest Order ONE of the following medications: *Heparin 5000 units SQ TID (Preferred with Epidurals) *Enoxaparin/Lovenox 40 mg SQ daily (WT < 150 kg, CrCl > 30 mL/min) *Enoxaparin/Lovenox 30 mg SQ daily (WT < 150 kg, CrCl > 10-29 mL/min) *Enoxaparin/Lovenox 30 mg SQ BID (WT < 150 kg, CrCl > 30 mL/min) AND *Sequential Compression Device (SCD) Assessment and Plan - Plan This is a 42-year-old male with no significant past medical history. He presented to the emergency department because of generalized muscle cramping from heat exhaustion. Workup shows acute kidney injury with creatinine of 2.7. Heat exhaustion. He is clinically improved with IV hydration. Patient has been educated regarding heat related illnesses. Acute kidney injury secondary to dehydration because of heat exhaustion. Nonoliguric. CK within normal limits. Improving per continue IV hydration. Avoid nephrotoxins Hyperglycemia. No history of diabetes. Obtain A1c. DVT prophylaxis with SCD Discharge Planning: Discharge patient to home if repeat BMP at 1 PM shows improvement of renal function Condition on discharge: Improved Regular Diet as tolerated Ad Mahnaz activity no driving Rx written: None Follow-up with primary care physician
[2018-04-26 13:16] VITALS: BP 112/66; PULSE 59; TEMP 97.2
[2018-04-26 14:07] LABS: Potassium 3.9 meq/L (3.5-5.1)
[2018-04-26 14:10] LABS: Calcium 7.8 mg/dL (8.5-10.1)
[2018-04-26 14:11] LABS: Carbon Dioxide 25.8 meq/L (21.0-32.0)
[2018-04-26 18:57] LABS: Hemoglobin A1c 5.7 % (4.3-6.0)
== END 2018-04-26 16:47 | disposition home or self-care (01) ==
LOC: PHED 16:51 → PHEDA 16:51 → PH3 16:51
PROVIDERS: ADMIT Internal Medicine; ATTEND Internal Medicine